=== PATIENT | male | born 1970 | race African-American/Black ===

== ENCOUNTER → 2018-03-13 | Outpatient (CLI) | payer SELFPAY ==
[2018-03-08 11:00] VITALS: BP 127/79
[~2018-03-13] MED LIST: ALBU2.5V5 NEB; ASCO500T2 PO; ASPI325T8 PO; GABA300C18 PO; HYDR-2761 PO; POTA20TA4 PO
--- NOTE | 2018-03-13 17:55 | RAD ---
Left lower extremity venous duplex study 03/13/2018 Clinical History: Left leg swelling and pain. Technique: Using a combination of real time ultrasound imaging and color-flow and pulse Doppler imaging techniques along with graded compression and augmentation, duplex evaluation of the deep venous system of the left lower extremity was performed. Multiple images were obtained. Findings: There is no sonographic evidence of deep venous thrombosis involving the visualized deep venous structures of the left lower extremity. Impression: Negative study. Electronically signed by: Joe Rojas MD (03/13/2018 5:52 PM) [id number]
== END | disposition home or self-care (01) ==
LOC: US 16:38
PROVIDERS: ATTEND Orthopaedic Surgery Sports Medicine
DX: M79.605 Pain in left leg (principal); M79.89 Other specified soft tissue disorders
CPT/HCPCS: 93971

== ENCOUNTER → 2018-04-20 | Outpatient (CLI) | payer SELFPAY ==
[2018-03-08 11:00] VITALS: BP 127/79
--- NOTE | 2018-04-20 18:01 | RAD ---
Left lower extremity venous doppler ultrasound Indication:LEFT LEG PAIN AND SWELLING Technique: Color Doppler, grayscale, and spectral waveform analysis is used to evaluate the left femoral and popliteal veins. Findings: No evidence of deep venous thrombosis. Normal response to augmentation, normal compressibility and normal phasicity is demonstrated. Visualized calf veins are patent. Impression: Negative for deep venous thrombosis Electronically signed by: Jose Luis Wong MD (04/20/2018 5:57 PM) [id number]
== END | disposition home or self-care (01) ==
LOC: US 16:09
PROVIDERS: ATTEND Orthopaedic Surgery Sports Medicine
DX: M79.89 Other specified soft tissue disorders (principal)
CPT/HCPCS: 93971